=== PATIENT | male | born 1995 | race American Indian/Alaskan Native ===

== ENCOUNTER 2020-12-12 10:04 | Emergency (ER) | payer SELFPAY ==
[2020-12-12 10:38] VITALS: BP 116/66
--- NOTE | 2020-12-12 12:04 | Emergency Department Report ---
Chief Complaint: Upper Respiratory Infection Stated Complaint: ALLERGIES Time Seen by Provider: 12/12/20 11:54 - HPI History of Present Illness: 25-year-old -[place] male patient presents with complaints of nasal congestion and sneezing x4 days. He states he is taking Claritin which helps with the sneezing, however it is not helping with his nasal congestion. He reports a history of seasonal allergies to pollen. He denies any loss of taste/smell, cough, fever/chills/sweats, shortness of breath, headache, facial pain or pressure, or postnasal drainage. Patient states he is otherwise feeling well. On exam, patient has swelling of the right nasal turbinates with a bluish hue consistent with allergic rhinitis. Recommended [id number] Flonase and levocetirizine. Patient to follow-up with primary care in 3 to 5 days. Signs and symptoms that should prompt immediate return to the emergency department were discussed in detail with patient who verbalizes understanding. His vitals are normal, he is well-appearing, he is stable for discharge home. - Exam Vital Signs: Vital Signs 12/12/20 10:37 Temperature 97.8 F Pulse Rate 64 Respiratory 16 Rate Blood Pressure 116/66 [Right] O2 Sat by Pulse 100 Oximetry MSE screening note: Focused history and physical exam performed. Due to findings the following was ordered: ED Disposition for MSE Clinical Impression: Allergic rhinitis Qualifiers: Allergic rhinitis trigger: pollen Allergic rhinitis seasonality: seasonal Qualified Code(s): J30.1 - Allergic rhinitis due to pollen Disposition: -07 MED SCREENING EXAM-LEFT Is pt being admited?: No Condition: Stable Instructions: Allergic Rhinitis, Adult Additional Instructions: Please purchase [id number] fluticasone (nasal spray) and levocetirizine for your allergies Referrals: [facility] [Provider Group] - 3-5 Days Forms: Work/School Release Form(ED) ED Physical Exam - General Limitations: No Limitations General appearance: alert, in no apparent distress - Head Head exam: Present: atraumatic, normocephalic - Eye Eye exam: Present: normal appearance. Absent: scleral icterus, conjunctival injection - ENT ENT exam: Present: normal orophraynx, TM's normal bilaterally, other (Erythematous swollen turbinates noted bilaterally, right worse than left with pale blue color) - Neck Neck exam: Present: normal inspection, full ROM. Absent: tenderness, lymphadenopathy - Respiratory Respiratory exam: Present: normal lung sounds bilaterally. Absent: respiratory distress - Cardiovascular Cardiovascular Exam: Present: regular rate, normal rhythm. Absent: systolic murmur, diastolic murmur, rubs, gallop - Extremities Exam Extremities exam: Present: full ROM - Back Exam Back exam: Present: normal inspection - Neurological Exam Neurological exam: Present: alert, oriented X3, normal gait - Psychiatric Psychiatric exam: Present: normal affect, normal mood ED Review of Systems ROS: Stated complaint: ALLERGIES Other details as noted in HPI Constitutional: denies: chills, diaphoresis, fever, malaise, weakness ENT: denies: throat pain Respiratory: denies: cough, shortness of breath Cardiovascular: denies: chest pain Hematological/Lymphatic: denies: swollen glands
== END 2020-12-12 14:37 | disposition left against medical advice (07) ==
LOC: ED 10:04
DX: Z00.8 Encounter for other general examination (principal); Z53.21 Procedure and treatment not carried out due to patient leaving prior to being seen by health care provider